=== PATIENT | male | born 1995 | race Caucasian/White ===

== ENCOUNTER 2019-06-13 12:31 | Emergency (ER) | payer OTHER ==
[~2019-06-13] VITALS: Wt 66.8 kg
[~2019-06-13 12:31] MED LIST: CLOT30CR24 TOP; CYCL10TA7 PO; IBUP-1542 PO; IBUP-1561 PO
[2019-06-13 12:52] VITALS: BP 153/78; PULSE 110; RESP 20
== END 2019-06-13 14:45 | disposition home or self-care (01) ==
LOC: FTE 12:31
DX: S60.512A Abrasion of left hand, initial encounter (principal); Y09 Assault by unspecified means
CPT/HCPCS: 99282